=== PATIENT | female | born 1990 | race Caucasian/White ===

== ENCOUNTER 2016-07-09 13:26 | Emergency (ER) | payer SELFPAY ==
[~2016-07-09] VITALS: Ht 162.6 cm; Wt 86.6 kg
[2016-07-09 16:58] VITALS: BP 120/73
== END 2016-07-09 16:58 | disposition home or self-care (01) ==
LOC: ED 13:26
DX: M79.1 Myalgia (principal); K76.0 Fatty (change of) liver, not elsewhere classified; E66.9 Obesity, unspecified; Z88.2 Allergy status to sulfonamides
CPT/HCPCS: J1100; J1885

== ENCOUNTER 2017-04-08 00:06 | Emergency (ER) | payer OTHER ==
[~2017-04-08] VITALS: Ht 167.6 cm; Wt 106.6 kg
[2017-04-08 00:22] VITALS: BP 125/97; Ht 167.6 cm; Wt 106.6 kg
== END 2017-04-08 01:15 | disposition home or self-care (01) ==
LOC: ED 00:06
DX: N39.0 Urinary tract infection, site not specified (principal); Z88.2 Allergy status to sulfonamides; Z90.49 Acquired absence of other specified parts of digestive tract

== ENCOUNTER 2017-04-25 13:32 | Emergency (ER) | payer OTHER ==
[~2017-04-25] VITALS: Ht 162.6 cm; Wt 111.6 kg
[2017-04-25 13:54] VITALS: BP 165/105
[2017-04-25 14:38] LABS: UA SPECIFIC GRAVITY >=1.030 (1.005-1.035); microscopic required? YES; urine erythrocyte 3+ (NEGATIVE)
== END 2017-04-25 14:42 | disposition home or self-care (01) ==
LOC: ED 13:32
PROVIDERS: Emergency Medicine
DX: N39.0 Urinary tract infection, site not specified (principal); Z88.2 Allergy status to sulfonamides

== ENCOUNTER 2017-08-28 18:49 | Emergency (ER) | payer OTHER ==
[~2017-08-28] VITALS: Ht 162.6 cm; Wt 112.5 kg
[2017-08-28 19:01] VITALS: Ht 162.6 cm; Wt 112.5 kg
[2017-08-28 20:41] LABS: BASOPHIL % 0.3 % (0-2); PLATELET COUNT 328 x10^3mcL (130-400); RED CELL DISTRIBUTION WIDTH 13.5 % (11.5-14.5)
[2017-08-28 20:52] LABS: CALCIUM 8.9 mg/dL (8.5-10.1); CARBON DIOXIDE 24.5 mmol/L (21-32); CHLORIDE SERUM 101 mmol/L (98-107); CREATININE SERUM 0.6 mg/dL (0.6-1.0); GFR1 > 60 mL/min; GLUCOSE SERUM 95 mg/dL (74-106); POTASSIUM SERUM 3.4 mmol/L (3.5-5.1); SODIUM SERUM 137 mmol/L (136-145)
[2017-08-28 21:03] LABS: ALBUMIN 3.3 g/dL (3.4-5.0); ALKALINE PHOSPHATASE 74 U/L (46-116); ALT/SGPT 80 U/L (14-59); AMYLASE 127 U/L (25-115); AST/SGOT 39 U/L (15-37); BILIRUBIN TOTAL 0.64 mg/dL (0.20-1.00); LIPASE 523 IU/L (73-393); TOTAL PROTEIN, SERUM 7.9 g/dL (6.4-8.2)
[2017-08-29 00:14] VITALS: BP 126/85
== END 2017-08-29 00:14 | disposition home or self-care (01) ==
LOC: ED 18:49
PROVIDERS: Emergency Medicine
DX: R10.84 Generalized abdominal pain (principal); E86.0 Dehydration; R19.7 Diarrhea, unspecified; Z88.2 Allergy status to sulfonamides
CPT/HCPCS: 83880; 87046; 87046-59; J7030

== ENCOUNTER 2017-11-11 14:22 | Emergency (ER) | payer OTHER | END 2017-11-11 14:55 | disposition left against medical advice (07) | LOC: ED 14:22 | DX: Z53.21 Procedure and treatment not carried out due to patient leaving prior to being seen by health care provider (principal) ==

== ENCOUNTER 2017-11-21 06:45 | Emergency (ER) | payer OTHER ==
[2017-11-21 06:50] VITALS: Ht 162.6 cm
[2017-11-21 07:26] VITALS: BP 160/85
== END 2017-11-21 07:27 | disposition home or self-care (01) ==
LOC: ED 06:45
DX: N39.0 Urinary tract infection, site not specified (principal); M33.10 Other dermatomyositis, organ involvement unspecified; Z88.2 Allergy status to sulfonamides

== ENCOUNTER 2018-01-30 13:40 | Emergency (ER) | payer OTHER ==
[~2018-01-30] VITALS: Ht 162.6 cm; Wt 112.5 kg
[2018-01-30 13:49] VITALS: Ht 162.6 cm; Wt 112.5 kg
[2018-01-30 16:05] VITALS: BP 133/87
== END 2018-01-30 16:05 | disposition home or self-care (01) ==
LOC: ED 13:40
DX: L50.9 Urticaria, unspecified (principal); Z88.2 Allergy status to sulfonamides
CPT/HCPCS: J0171; J1200

== ENCOUNTER 2018-04-28 12:08 | Emergency (ER) | payer OTHER ==
[~2018-04-28] VITALS: Ht 160 cm; Wt 108.2 kg
[2018-04-28 12:13] VITALS: Ht 160 cm; Wt 108.2 kg
[2018-04-28 14:19] VITALS: BP 145/103
[2018-04-28 14:19] LABS: UA SPECIFIC GRAVITY >=1.030 (1.005-1.035); microscopic required? YES; urine erythrocyte NEGATIVE (NEGATIVE)
== END 2018-04-28 14:19 | disposition home or self-care (01) ==
LOC: ED 12:08
PROVIDERS: Specialist
DX: N39.0 Urinary tract infection, site not specified (principal); Z88.2 Allergy status to sulfonamides

== ENCOUNTER 2018-07-21 17:02 | Emergency (ER) | payer OTHER ==
[~2018-07-21] VITALS: Ht 160 cm; Wt 112.0 kg
[2018-07-21 17:09] VITALS: Ht 160 cm; Wt 112.0 kg
[2018-07-21 17:31] VITALS: BP 149/95
== END 2018-07-21 17:32 | disposition home or self-care (01) ==
LOC: ED 17:02
DX: R30.0 Dysuria (principal); Z88.2 Allergy status to sulfonamides

== ENCOUNTER 2018-10-02 12:26 | Emergency (ER) | payer OTHER ==
[~2018-10-02] VITALS: Ht 162.6 cm; Wt 110.2 kg
[2018-10-02 12:52] VITALS: Ht 162.6 cm; Wt 110.2 kg
[2018-10-02 14:10] LABS: microscopic required? NO
[2018-10-02 14:13] LABS: UA SPECIFIC GRAVITY >=1.030 (1.005-1.035); urine erythrocyte NEGATIVE (NEGATIVE)
[2018-10-02 14:40] VITALS: BP 135/70
== END 2018-10-02 14:40 | disposition home or self-care (01) ==
LOC: ED 12:26
DX: R30.0 Dysuria (principal); R10.30 Lower abdominal pain, unspecified; Z88.2 Allergy status to sulfonamides
CPT/HCPCS: 87491; 87591

== ENCOUNTER 2019-02-07 09:08 | Emergency (ER) | payer OTHER ==
[~2019-02-07] VITALS: Ht 160 cm; Wt 97.1 kg
[2019-02-07 09:20] VITALS: Ht 160 cm; Wt 97.1 kg
[2019-02-07 10:30] VITALS: BP 129/71
== END 2019-02-07 10:30 | disposition home or self-care (01) ==
LOC: ED 09:08
DX: H65.93 Unspecified nonsuppurative otitis media, bilateral (principal); Z88.2 Allergy status to sulfonamides; Z90.49 Acquired absence of other specified parts of digestive tract

== ENCOUNTER 2019-02-23 08:03 | Emergency (ER) | payer OTHER ==
[~2019-02-23] VITALS: Ht 157.5 cm; Wt 111.6 kg
[2019-02-23 08:14] VITALS: BP 143/97; Ht 157.5 cm; Wt 111.6 kg
== END 2019-02-23 10:28 | disposition home or self-care (01) ==
LOC: ED 08:03
DX: J11.1 Influenza due to unidentified influenza virus with other respiratory manifestations (principal); D89.9 Disorder involving the immune mechanism, unspecified; Z88.2 Allergy status to sulfonamides; Z90.49 Acquired absence of other specified parts of digestive tract
CPT/HCPCS: 87804; Q0092

== ENCOUNTER 2019-03-13 03:16 | Emergency (ER) | payer OTHER ==
[~2019-03-13] VITALS: Ht 193 cm; Wt 128.8 kg
[2019-03-13 03:40] VITALS: BP 130/67
== END 2019-03-13 03:40 | disposition home or self-care (01) ==
LOC: ED 03:16
DX: N39.0 Urinary tract infection, site not specified (principal); Z88.2 Allergy status to sulfonamides; Z90.49 Acquired absence of other specified parts of digestive tract

== ENCOUNTER 2019-07-17 21:07 | Emergency (ER) | payer OTHER ==
[~2019-07-17] VITALS: Ht 162.6 cm; Wt 116.1 kg
[2019-07-17 21:14] VITALS: BP 179/85; Ht 162.6 cm; Wt 116.1 kg
[2019-07-17 21:34] LABS: UA SPECIFIC GRAVITY 1.025 (1.005-1.035); microscopic required? YES; urine erythrocyte 3+ (NEGATIVE)
== END 2019-07-17 21:40 | disposition home or self-care (01) ==
LOC: ED 21:07
PROVIDERS: Emergency Medicine
DX: N39.0 Urinary tract infection, site not specified (principal); Z90.49 Acquired absence of other specified parts of digestive tract; Z88.2 Allergy status to sulfonamides

== ENCOUNTER 2019-11-10 18:25 | Emergency (ER) | payer OTHER ==
[~2019-11-10] VITALS: Ht 160 cm; Wt 115.2 kg
[2019-11-10 18:48] VITALS: Ht 160 cm; Wt 115.2 kg
[2019-11-10 20:13] LABS: UA SPECIFIC GRAVITY >=1.030 (1.005-1.035); microscopic required? YES; urine erythrocyte TRACE (NEGATIVE)
[2019-11-10 20:14] LABS: BASOPHIL % 1.1 % (0-2); PLATELET COUNT 331 x10^3mcL (130-400); RED CELL DISTRIBUTION WIDTH 12.8 % (11.5-14.5)
[2019-11-10 20:49] LABS: CALCIUM 9.2 mg/dL (8.5-10.1); CARBON DIOXIDE 24.6 mmol/L (21-32); CHLORIDE SERUM 104 mmol/L (98-107); CREATININE SERUM 0.8 mg/dL (0.6-1.0); GFR1 > 60 mL/min; GLUCOSE SERUM 95 mg/dL (74-106); POTASSIUM SERUM 3.7 mmol/L (3.5-5.1); SODIUM SERUM 138 mmol/L (136-145)
[2019-11-10 20:55] LABS: ALBUMIN 3.9 g/dL (3.4-5.0); ALKALINE PHOSPHATASE 65 U/L (46-116); ALT/SGPT 70 U/L (14-59); AST/SGOT 44 U/L (15-37); BILIRUBIN TOTAL 0.91 mg/dL (0.20-1.00); TOTAL PROTEIN, SERUM 8.2 g/dL (6.4-8.2)
[2019-11-10 21:40] VITALS: BP 131/90
== END 2019-11-10 21:40 | disposition home or self-care (01) ==
LOC: ED 18:25
PROVIDERS: Emergency Medicine
DX: N39.0 Urinary tract infection, site not specified (principal); Z90.49 Acquired absence of other specified parts of digestive tract; Z88.2 Allergy status to sulfonamides
CPT/HCPCS: 87491; 87591

== ENCOUNTER 2019-11-12 17:56 | Emergency (ER) | payer OTHER ==
[~2019-11-12] VITALS: Ht 162.6 cm; Wt 114.8 kg
[2019-11-12 18:29] VITALS: Ht 162.6 cm; Wt 114.8 kg
[2019-11-12 19:17] VITALS: BP 159/94
[2019-11-12 19:42] LABS: UA SPECIFIC GRAVITY 1.025 (1.005-1.035); microscopic required? YES; urine erythrocyte 3+ (NEGATIVE)
[2019-11-12 19:44] LABS: BASOPHIL % 0.4 % (0-2); PLATELET COUNT 321 x10^3mcL (130-400); RED CELL DISTRIBUTION WIDTH 12.4 % (11.5-14.5)
== END 2019-11-12 21:06 | disposition home or self-care (01) ==
LOC: ED 17:56
PROVIDERS: Emergency Medicine
DX: O03.9 Complete or unspecified spontaneous abortion without complication (principal)
CPT/HCPCS: Q0092

== ENCOUNTER 2020-02-01 18:12 | Emergency (ER) | payer OTHER ==
[~2020-02-01] VITALS: Ht 162.6 cm; Wt 115.7 kg
[2020-02-01 18:26] VITALS: Ht 162.6 cm; Wt 115.7 kg
[2020-02-01 18:51] VITALS: BP 163/79
== END 2020-02-01 18:45 | disposition home or self-care (01) ==
LOC: ED 18:12
DX: N39.0 Urinary tract infection, site not specified (principal); Z90.49 Acquired absence of other specified parts of digestive tract; Z88.2 Allergy status to sulfonamides

== ENCOUNTER 2020-05-02 12:06 | Emergency (ER) | payer OTHER ==
[~2020-05-02] VITALS: Ht 162.6 cm; Wt 118.4 kg
[2020-05-02 12:18] VITALS: Ht 162.6 cm; Wt 118.4 kg
[2020-05-02] MEDS ORDERED: MACROBID100 MG PO (12:51)
[2020-05-02 13:05] LABS: UA SPECIFIC GRAVITY 1.025 (1.005-1.035); microscopic required? YES; urine erythrocyte 1+ (NEGATIVE)
[2020-05-02 13:20] VITALS: BP 160/102
== END 2020-05-02 13:14 | disposition home or self-care (01) ==
LOC: ED 12:06
PROVIDERS: Emergency Medicine
DX: N39.0 Urinary tract infection, site not specified (principal); Z90.49 Acquired absence of other specified parts of digestive tract; Z88.2 Allergy status to sulfonamides